=== PATIENT | female | born 1995 | race African-American/Black ===

== ENCOUNTER 2017-07-14 07:48 | Emergency (ER) | payer OTHER ==
[~2017-07-14] VITALS: Ht 177.8 cm; Wt 56.7 kg
[2017-07-14 07:52] VITALS: BP 120/76
--- NOTE | 2017-07-14 08:02 | NUR ---
PATIENT PRESENTS TO ED WITH BRIANNA EAR PAIN X2 DAYS . PT STATES . DENIES N/V/D; SKIN IS PINK/WARM/DRY; AAOX4 WITH EVEN AND STEADY GAIT; LUNGS CLEAR BL; HR EVEN AND REGULAR; PT DENIES ANY FEVER, CP, SOB, OR COUGH AT THIS TIME; PATIENT STATES PAIN OF 9/10 AT THIS TIME; VSS; ER MD MADE AWARE OF PT STATUS.
[2017-07-14 08:06] VITALS: BP 120/76
--- NOTE | 2017-07-14 08:07 | NUR ---
Patient discharged with v/s stable. Written and verbal after care instructions given and explained. Patient alert, oriented and verbalized understanding of instructions. Ambulatory with steady gait. All questions addressed prior to discharge. ID band removed. Patient advised to follow up with PMD. Rx of IBUPROFEN/ CORTISPORIN OTIC LAZARA given. Patient educated on indication of medication including possible reaction and side effects. Opportunity to ask questions provided and answered.
== END 2017-07-14 08:07 | disposition home or self-care (01) ==
LOC: MED 07:48
DX: H60.91 Unspecified otitis externa, right ear (principal)
CPT/HCPCS: 99283

== ENCOUNTER 2017-09-29 13:33 | Emergency (ER) | payer OTHER ==
[~2017-09-29] VITALS: Ht 177.8 cm; Wt 58.1 kg
[2017-09-29 13:37] VITALS: BP 128/82
[2017-09-29 14:37] VITALS: BP 129/80
== END 2017-09-29 14:37 | disposition home or self-care (01) ==
LOC: MED 13:33
DX: J02.9 Acute pharyngitis, unspecified (principal)
CPT/HCPCS: 87081; 99284

== ENCOUNTER 2020-07-31 18:02 | Emergency (ER) | payer OTHER ==
[~2020-07-31] VITALS: Ht 177.8 cm; Wt 59.0 kg
[2020-07-31 18:16] VITALS: BP 116/73
[2020-07-31] MEDS ORDERED: TOMOMETER 1 DEV DEV MC ONE (18:32)
[2020-07-31] MEDS: FLUORESCEIN OPTH STRIP 1 MG OP ONE (18:47)
[2020-07-31] MEDS: TETRACAINE HCL/PF 0.5% OPTH 4 ML BTL OP ONE (18:48)
[2020-07-31] MEDS ORDERED: AZEL6SOL6 RIGHT EYE (19:00)
[2020-07-31 19:16] VITALS: BP 120/78
== END 2020-07-31 19:17 | disposition home or self-care (01) ==
LOC: MED 18:02
DX: H10.11 Acute atopic conjunctivitis, right eye (principal)
CPT/HCPCS: 99283